=== PATIENT | male | born 1965 | race African-American/Black ===

== ENCOUNTER 2023-09-25 08:18 | Emergency (ER) | payer OTHER, MEDICAID ==
[~2023-09-25] VITALS: Ht 177.8 cm; Wt 100.0 kg
[2023-09-25] MEDS ORDERED: P20 PO (08:37)
[2023-09-25] MEDS: PREDNISONE 20MG TABLET PO STA (08:45)
[2023-09-25 10:05] VITALS: PULSE 76; RESP 24; O2SAT 96
[2023-09-25] MEDS: IPRATROPIUM BROMIDE (0.02%) 0.5MG/2.5ML NEB HHN STA (10:05)
[2023-09-25] MEDS: ALBUTEROL (0.083%) 2.5MG/3ML NEB HHN STA (10:05)
[2023-09-25 10:44] VITALS: BP 170/89; PULSE 83; RESP 18; TEMP 98.1
== END 2023-09-25 10:48 | disposition home or self-care (01) ==
LOC: ER 08:34
DX: J45.901 Unspecified asthma with (acute) exacerbation (principal); I50.9 Heart failure, unspecified; J44.1 Chronic obstructive pulmonary disease with (acute) exacerbation; E11.9 Type 2 diabetes mellitus without complications; E78.00 Pure hypercholesterolemia, unspecified
CPT/HCPCS: 99285; 71045; 94644; J7512

== ENCOUNTER 2024-01-20 11:39 | Emergency (ER) | payer OTHER, MEDICAID ==
[~2024-01-20] VITALS: Ht 188 cm; Wt 129.0 kg
[~2024-01-20 11:39] MED LIST: P20 PO
[2024-01-20 11:41] VITALS: BP 138/80; PULSE 85; RESP 18; TEMP 98.2; O2SAT 100
== END 2024-01-21 03:22 | disposition left against medical advice (07) ==
LOC: ER 13:23
DX: R06.2 Wheezing (principal); H53.8 Other visual disturbances; I11.0 Hypertensive heart disease with heart failure; I50.9 Heart failure, unspecified; E11.9 Type 2 diabetes mellitus without complications; E78.00 Pure hypercholesterolemia, unspecified; Z53.21 Procedure and treatment not carried out due to patient leaving prior to being seen by health care provider

== ENCOUNTER 2024-03-01 13:36 | Emergency (ER) | payer MEDICAID, OTHER ==
[~2024-03-01] VITALS: Ht 188 cm; Wt 100.0 kg
[2024-03-01] MEDS ORDERED: ALBUTEROL (13:43)
[2024-03-01 13:44] VITALS: TEMP 97.1; O2SAT 100
[2024-03-01] MEDS ORDERED: BUDE6HFA INH (15:45)
[2024-03-01] MEDS ORDERED: ALBU90AE INH (15:45)
[2024-03-01] MEDS ORDERED: P50 MT (15:45)
[2024-03-01] MEDS: DEXAMETHASONE 4MG/ML 1ML VIAL IV ONE (15:49)
[2024-03-01 16:10] VITALS: BP 162/92; PULSE 84; RESP 18; O2SAT 97
== END 2024-03-01 16:11 | disposition home or self-care (01) ==
LOC: ER 13:36
DX: J45.901 Unspecified asthma with (acute) exacerbation (principal); I11.0 Hypertensive heart disease with heart failure; I50.9 Heart failure, unspecified; E78.00 Pure hypercholesterolemia, unspecified; E11.9 Type 2 diabetes mellitus without complications; J44.1 Chronic obstructive pulmonary disease with (acute) exacerbation; Z79.52 Long term (current) use of systemic steroids; Z79.51 Long term (current) use of inhaled steroids
CPT/HCPCS: 96374; 99283; J1100; Z7610 ×2

== ENCOUNTER 2024-04-10 07:01 | Emergency (ER) | payer MEDICAID, OTHER ==
[~2024-04-10] VITALS: Ht 188 cm; Wt 120.0 kg
[~2024-04-10 07:01] MED LIST changes: +ALBU90AE INH; +ALBUTEROL; +BUDE6HFA INH; +P50 MT
[2024-04-10] MEDS ORDERED: BUDE6HFA INH (07:57)
[2024-04-10] MEDS ORDERED: P50 MT (07:57)
[2024-04-10] MEDS ORDERED: ALBU90AE INH (07:57)
[2024-04-10 08:08] VITALS: PULSE 80; RESP 14; O2SAT 95
[2024-04-10] MEDS: ALBUTEROL (0.083%) 2.5MG/3ML NEB HHN STA (08:08)
[2024-04-10] MEDS: IPRATROPIUM BROMIDE (0.02%) 0.5MG/2.5ML NEB HHN STA (08:08)
[2024-04-10] MEDS: MAGNESIUM 2 G PREMIX 50 ML IV ONE (08:13)
[2024-04-10] MEDS: DEXAMETHASONE 4MG/ML 1ML VIAL IV ONE (08:13)
[2024-04-10 09:48] VITALS: BP 156/80; PULSE 85; RESP 16; TEMP 36.89184; O2SAT 98
== END 2024-04-10 09:49 | disposition home or self-care (01) ==
LOC: ER 07:01
DX: J45.901 Unspecified asthma with (acute) exacerbation (principal); I10 Essential (primary) hypertension; Z79.899 Other long term (current) drug therapy
CPT/HCPCS: 71045; 94640; 96365; 96375; 99284; J1100; J3475; Z7610 ×5

== ENCOUNTER 2024-05-23 07:31 | Emergency (ER) | payer OTHER, MEDICAID ==
[~2024-05-23] VITALS: Ht 188 cm; Wt 130.0 kg
[2024-05-23 07:36] VITALS: O2SAT 98
[2024-05-23] MEDS: PREDNISONE 20MG TABLET PO STA (08:04)
[2024-05-23] MEDS: IPRATROPIUM BROMIDE (0.02%) 0.5MG/2.5ML NEB HHN STA (08:10)
[2024-05-23] MEDS: ALBUTEROL (0.083%) 2.5MG/3ML NEB HHN SCH (08:11)
[2024-05-23 08:12] VITALS: PULSE 92; RESP 24
[2024-05-23 10:15] VITALS: TEMP 37.33632
[2024-05-23] MEDS ORDERED: P50 MT (10:41)
[2024-05-23] MEDS ORDERED: ALBU2.5V13 NEB (10:41)
[2024-05-23] MEDS ORDERED: ALBU90AE INH (10:41)
[2024-05-23] MEDS ORDERED: GUAI-450 MT (10:41)
[2024-05-23] MEDS ORDERED: BUDE6HFA INH (10:41)
[2024-05-23 11:42] VITALS: BP 161/85; PULSE 89; RESP 16; O2SAT 94
== END 2024-05-23 11:43 | disposition home or self-care (01) ==
LOC: ER 07:49
DX: J45.901 Unspecified asthma with (acute) exacerbation (principal); E78.00 Pure hypercholesterolemia, unspecified; I10 Essential (primary) hypertension; Z79.899 Other long term (current) drug therapy
CPT/HCPCS: 99285; 94070; 71045; 94664; 93005; 98960; 94644; J7512; 94640

== ENCOUNTER 2024-07-10 10:44 | Emergency (ER) | payer OTHER, MEDICAID ==
[~2024-07-10] VITALS: Ht 190.5 cm; Wt 118.0 kg
[~2024-07-10 10:44] MED LIST changes: +ALBU2.5V13 NEB; +GUAI-450 MT
[2024-07-10 11:00] VITALS: PULSE 91; RESP 26; O2SAT 97
[2024-07-10 11:01] VITALS: BP 150/84; PULSE 93; RESP 16; TEMP 36.9; O2SAT 97
[2024-07-10] MEDS: PREDNISONE 20MG TABLET PO STA (11:10)
[2024-07-10] MEDS: ALBUTEROL (0.083%) 2.5MG/3ML NEB HHN STA (11:15)
[2024-07-10] MEDS: IPRATROPIUM BROMIDE (0.02%) 0.5MG/2.5ML NEB HHN STA (11:15)
[2024-07-10] MEDS ORDERED: P50 PO (12:26)
[2024-07-10] MEDS ORDERED: ALBU90AE INH (12:26)
[2024-07-10] MEDS ORDERED: FLUT1BLS8 IH (12:26)
[2024-07-11] MEDS ORDERED: ALBU90AE INH (17:07)
[2024-07-11] MEDS ORDERED: P20 PO (17:07)
[2024-07-11] MEDS ORDERED: ALBU2.5V13 NEB (17:07)
== END 2024-07-10 12:42 | disposition home or self-care (01) ==
LOC: ER 10:45
DX: K76.9 Liver disease, unspecified (principal); J45.901 Unspecified asthma with (acute) exacerbation; E78.00 Pure hypercholesterolemia, unspecified; I10 Essential (primary) hypertension; Z79.51 Long term (current) use of inhaled steroids; Z79.52 Long term (current) use of systemic steroids
CPT/HCPCS: 99285; 94664; J7512; 94070; 94640

== ENCOUNTER 2024-07-11 13:02 | Emergency (ER) | payer MEDICAID, OTHER ==
[~2024-07-11] VITALS: Ht 190.5 cm; Wt 115.0 kg
[~2024-07-11 13:02] MED LIST changes: +FLUT1BLS8 IH; +P50 PO
[2024-07-11 13:06] VITALS: BP 149/105; TEMP 36.8
[2024-07-11] MEDS ORDERED: METHYLPREDNISOLONE SOD SUCC 125MG/2ML (ACT-O-VIAL) IV STA (13:16)
[2024-07-11] MEDS ORDERED: ACETAMINOPHEN 325MG TABLET PO ONE (13:30)
[2024-07-11] MEDS ORDERED: FAMOTIDINE 20MG/2ML VIAL IV ONE (13:30)
[2024-07-11] MEDS ORDERED: MAGNESIUM/ALUMINUM HYDROXIDE/SIMETHICONE 30ML UDC PO ONE (13:30)
[2024-07-11 13:33] VITALS: PULSE 94; RESP 20; O2SAT 92
[2024-07-11] MEDS: ALBUTEROL (0.083%) 2.5MG/3ML NEB HHN STA (13:33)
[2024-07-11] MEDS: IPRATROPIUM BROMIDE (0.02%) 0.5MG/2.5ML NEB HHN STA (13:33)
[2024-07-11 16:06] LABS: HEMATOCRIT. 34.2 % (42.0-52.0); HEMOGLOBIN. 11.1 g/dL (14.0-18.0); MEAN CORPUSCULAR HEMOGLOBIN 25.3 pg (28.0-32.0); MEAN CORPUSCULAR HGB CONC 32.3 g/dL (31.0-37.0); MEAN CORPUSCULAR VOLUME 78.3 fL (80.0-94.0); MEAN PLATELET VOLUME 9.5 fl (7.4-10.4); PLATELET 278 x1000/uL (130-400); RED BLOOD CELL COUNT 4.37 mill/uL (4.7-6.1); RED CELL DISTRIBUTION WIDTH 16.3 % (11.6-14.6); WHITE BLOOD COUNT 8.7 x1000/uL (4.5-11.0)
[2024-07-11 16:11] LABS: DIFFERENTIAL COMMENT 1
[2024-07-11 16:14] LABS: CHLORIDE 105 mEq/L (98-107); POTASSIUM 4.5 mEq/L (3.5-5.1); SODIUM 140 mEq/L (136-145)
[2024-07-11 16:15] LABS: CALCIUM 9.4 mg/dL (8.7-10.4); CARBON DIOXIDE 28 mEq/L (21-32)
[2024-07-11 16:20] LABS: GLUCOSE 198 mg/dL (70-105); UREA NITROGEN BLOOD 28 mg/dL (9-23)
[2024-07-11 16:21] LABS: TROPONIN I HIGH SENSITIVITY 39 ng/L (3.0-53)
[2024-07-11 16:22] LABS: ALANINE AMINOTRANSFERASE 13 IU/L (10-49); ALBUMIN 4.1 g/dL (3.2-4.8); ASPARTATE AMINOTRANSFERASE 28 IU/L (<34); BILIRUBIN TOTAL 0.3 mg/dL (0.1-1.0); PROTEIN TOTAL 7.1 g/dL (6.0-8.3)
[2024-07-11 16:32] LABS: CREATININE 1.9 mg/dL (0.6-1.3)
[2024-07-11 16:37] LABS: MICROCYTOSIS 1+
[2024-07-11 16:41] LABS: PLATELET ESTIMATE NORMAL
[2024-07-11] MEDS: ACETAMINOPHEN 325MG TABLET PO NR (16:41)
[2024-07-11] MEDS: METHYLPREDNISOLONE SOD SUCC 125MG/2ML (ACT-O-VIAL) IV NR (16:41)
[2024-07-11] MEDS: MAGNESIUM/ALUMINUM HYDROXIDE/SIMETHICONE 30ML UDC PO NR (16:41)
[2024-07-11] MEDS: FAMOTIDINE 20MG/2ML VIAL IV NR (16:42)
[2024-07-11] MEDS ORDERED: ALBU90AE INH (17:07)
[2024-07-11] MEDS ORDERED: P20 PO (17:07)
[2024-07-11] MEDS ORDERED: ALBU2.5V13 NEB (17:07)
== END 2024-07-11 17:34 | disposition home or self-care (01) ==
LOC: ER 13:06
DX: J45.901 Unspecified asthma with (acute) exacerbation (principal); I10 Essential (primary) hypertension; Z79.51 Long term (current) use of inhaled steroids; Z79.52 Long term (current) use of systemic steroids
CPT/HCPCS: 80053; 83880; 85025; 84484; 36415; 71045; 93005; 94644; 96374; 96375; 99285; J3490; J2919; Z7610; 94640; 94664

== ENCOUNTER 2024-07-13 17:59 | Emergency (ER) | payer MEDICAID ==
[~2024-07-13] VITALS: Ht 182.9 cm; Wt 90.0 kg
[2024-07-13 18:00] VITALS: O2SAT 98
[2024-07-13 18:03] VITALS: BP 174/105; PULSE 82; RESP 18; TEMP 36.7; O2SAT 98
[2024-07-13 19:00] LABS: HEMOGLOBIN. 11.3 g/dL (14.0-18.0); MEAN CORPUSCULAR HEMOGLOBIN 25.1 pg (28.0-32.0); MEAN CORPUSCULAR HGB CONC 32.3 g/dL (31.0-37.0); MEAN CORPUSCULAR VOLUME 77.8 fL (80.0-94.0); MEAN PLATELET VOLUME 9.6 fl (7.4-10.4); PLATELET 310 x1000/uL (130-400); WHITE BLOOD COUNT 10.6 x1000/uL (4.5-11.0)
[2024-07-13 19:03] LABS: DIFFERENTIAL COMMENT 1
[2024-07-13 19:11] LABS: CHLORIDE 104 mEq/L (98-107); POTASSIUM 4.3 mEq/L (3.5-5.1); SODIUM 139 mEq/L (136-145)
[2024-07-13 19:12] LABS: CALCIUM 9.2 mg/dL (8.7-10.4); CARBON DIOXIDE 28 mEq/L (21-32)
[2024-07-13 19:17] LABS: CREATININE 1.3 mg/dL (0.6-1.3); GLUCOSE 198 mg/dL (70-105); UREA NITROGEN BLOOD 24 mg/dL (9-23)
[2024-07-13 19:18] LABS: ANISOCYTOSIS 1+; PLATELET ESTIMATE NORMAL; TROPONIN I HIGH SENSITIVITY 42 ng/L (3.0-53)
[2024-07-13 19:19] LABS: MICROCYTOSIS 1+
== END 2024-07-13 20:17 | disposition left against medical advice (07) ==
LOC: ER 17:59
DX: I24.9 Acute ischemic heart disease, unspecified (principal); I10 Essential (primary) hypertension; J45.909 Unspecified asthma, uncomplicated; Z79.52 Long term (current) use of systemic steroids; Z79.51 Long term (current) use of inhaled steroids; Z82.49 Family history of ischemic heart disease and other diseases of the circulatory system; Z79.899 Other long term (current) drug therapy
CPT/HCPCS: 36415; 71045; 80048; 83880; 84484; 85025; 99284

== ENCOUNTER 2024-10-06 10:40 | Emergency (ER) | payer OTHER ==
[~2024-10-06] VITALS: Ht 188 cm; Wt 113.0 kg
[~2024-10-06 10:40] MED LIST changes: +CETI10TA6 PO; +DILT240C95 MT; +GUAI600T26 MT; +LOSA25TA26 PO; +OMEP20CA14 PO
[2024-10-06 10:42] VITALS: O2SAT 100
[2024-10-06 11:27] LABS: CHLORIDE 108 mEq/L (98-107); POTASSIUM 3.7 mEq/L (3.5-5.1); SODIUM 140 mEq/L (136-145)
[2024-10-06 11:28] LABS: CARBON DIOXIDE 24 mEq/L (21-32)
[2024-10-06 11:29] LABS: CALCIUM 8.5 mg/dL (8.7-10.4)
[2024-10-06 11:33] LABS: CREATININE 1.3 mg/dL (0.6-1.3)
[2024-10-06 11:34] LABS: GLUCOSE 166 mg/dL (70-105); UREA NITROGEN BLOOD 16 mg/dL (9-23)
[2024-10-06 11:35] LABS: TROPONIN I HIGH SENSITIVITY 21 ng/L (3.0-53)
[2024-10-06 12:03] LABS: BASOPHILS % 1.2 % (0.0-2.0); EOSINOPHILS % 2.3 % (0.0-5.0); HEMATOCRIT. 24.7 % (42.0-52.0); HEMOGLOBIN. 7.5 g/dL (14.0-18.0); LYMPHOCYTES % 15.5 % (20.0-50.0); MEAN CORPUSCULAR HEMOGLOBIN 20.7 pg (28.0-32.0); MEAN CORPUSCULAR HGB CONC 30.4 g/dL (31.0-37.0); MEAN PLATELET VOLUME 8.6 fl (7.4-10.4); PLATELET 304 x1000/uL (130-400); RED BLOOD CELL COUNT 3.63 mill/uL (4.7-6.1); RED CELL DISTRIBUTION WIDTH 21.7 % (11.6-14.6); WHITE BLOOD COUNT 5.5 x1000/uL (4.5-11.0)
[2024-10-06 12:14] LABS: ADD RBC MORPHOLOGY YES; DIFFERENTIAL COMMENT 1
[2024-10-06 12:44] LABS: HYPOCHROMASIA 1+; MICROCYTOSIS 3+
[2024-10-06 12:45] LABS: ANISOCYTOSIS 1+
[2024-10-06 12:46] LABS: PLATELET ESTIMATE NORMAL
[2024-10-06 13:15] LABS: TROPONIN I HIGH SENSITIVITY 23 ng/L (3.0-53)
[2024-10-06 13:30] VITALS: BP 133/73; PULSE 75; RESP 17; TEMP 36.8; O2SAT 99
== END 2024-10-06 14:00 | disposition home or self-care (01) ==
LOC: ER 10:40 → CANBEDREQ 14:01
DX: R06.09 Other forms of dyspnea (principal); J45.909 Unspecified asthma, uncomplicated; I10 Essential (primary) hypertension; I48.91 Unspecified atrial fibrillation; F10.90 Alcohol use, unspecified, uncomplicated; F12.90 Cannabis use, unspecified, uncomplicated; Z79.51 Long term (current) use of inhaled steroids; Z79.52 Long term (current) use of systemic steroids; Z79.899 Other long term (current) drug therapy; Y90.9 Presence of alcohol in blood, level not specified
CPT/HCPCS: 36415; 71045; 80048; 83880; 84484; 85025; 93005; 93970; 99285